=== PATIENT | female | born 1995 | race Two or more races ===

== ENCOUNTER 2023-11-05 09:05 | Emergency (ER) | payer MEDICAID ==
[~2023-11-05] VITALS: Ht 165.1 cm; Wt 66.0 kg
[2023-11-05 11:11] VITALS: BP 120/69; PULSE 100; RESP 17; TEMP 97.2; O2SAT 98
[2023-11-05] MEDS ORDERED: PSEU120T2 PO (11:25)
[2023-11-05] MEDS ORDERED: IBUP1TAB5 PO (11:25)
[2023-11-05] MEDS ORDERED: AUG875T PO (11:25)
== END 2023-11-05 11:31 | disposition home or self-care (01) ==
LOC: ER 09:05
DX: J32.9 Chronic sinusitis, unspecified (principal)